=== PATIENT | female | born 1945 | race Caucasian/White ===

== ENCOUNTER 2016-07-25 12:55 | Emergency (ER) | payer OTHER, BC ==
[~2016-07-25] VITALS: Ht 165.1 cm; Wt 107.4 kg
[~2016-07-25 12:55] MED LIST: ASPIRIN325 MG PO; BENICAR HCT 201 EACH PO; BENICAR20 MG PO; BUDEPRION XL300 MG PO; Benicar PO; CRESTOR5 MG PO; ERGOCALCIF50000 UNIT PO; Ecotrin PO; GLUCOPHAGE500 MG PO; LO-DOSE ASPIRIN81 M1 PO; METFORMIN HCL750 MG PO; OMEPRAZOLE40 M1; OMEPRAZOLE40 M1 PO; Omeprazole PO; PRAVASTATIN SOD40 MG PO; SYNTHROID150 MCG PO; TYLENOL EXTRA500 MG PO; VITAMIN D250000 UNIT PO; WELLBUTRIN XL300 MG PO
[2016-07-25 14:24] LABS: HEMATOCRIT 39.3 % (36.0-46.0); MCH 28.3 PG (29.0-34.0); MCHC 32.1 G/DL (30.0-36.0); MCV 88.3 FL (83-99); MEAN PLAT.VOLUME 9.5 uM^3 (9.5-12.4); RBC DIS.WIDTH-CV 12.1 % (11.8-14.6); RBC DIS.WIDTH-SD 39.5 % (39-53); RED BLOOD COUNT 4.45 M/uL (3.80-5.20)
[2016-07-25 14:28] LABS: PLATELET COUNT 427 K/uL (156-360); WHITE BLOOD COUNT 8.1 K/uL (4.1-10.2)
[2016-07-25 14:36] LABS: CHLORIDE 102 mEq/L (99-109); POTASSIUM 3.6 mEq/L (3.7-5.4); SODIUM 136 mEq/L (136-147)
[2016-07-25 14:38] LABS: GLUCOSE 86 mg/dL (70-99)
[2016-07-25 14:39] LABS: ANION GAP 9 MEQ/L (2-14)
[2016-07-25 14:42] LABS: GFR ESTIMATE (CALCULATED) > 59 mL/min/; UREA NITROGEN (BUN) 9 mg/dL (9-23)
[2016-07-25 17:22] LABS: TROP-I INTERPRETATION NEGATIVE; TROPONIN-I < 0.01 ng/mL (0.0-0.30)
[2016-07-25] MEDS ORDERED: GABAPENTIN100 MG PO (17:43)
[2016-07-25] MEDS ORDERED: CELEXA10 MG PO (17:43)
[2016-07-25 18:22] LABS: ADD MIUA? YES; BILIRUBIN NEGATIVE; BLOOD NEGATIVE; COLOR AMBER ((YELLOW)); GLUCOSE (STRIP) NEGATIVE; KETONES NEGATIVE; LEUKOCYTES MODERATE; NITRITE NEGATIVE; PROTEIN (STRIP) 30; SPECIFIC GRAVITY 1.024 (1.000-1.030)
[2016-07-25 19:27] LABS: BACTERIA NONE SEEN /HPF; CALCIUM OXALATE CRYSTALS 4+ /HPF; EPITHELIAL CELLS 1+ /HPF; MUCUS 3+ /LPF
[2016-07-25] MEDS ORDERED: KEFLEX500 MG PO (19:28)
[2016-07-25] MEDS ORDERED: TESSALON PERLE100 MG PO (19:29)
[2016-07-25 19:57] VITALS: BP 136/86
== END 2016-07-25 19:59 | disposition home or self-care (01) ==
LOC: EME 12:55
PROVIDERS: Nurse Practitioner Family
DX: J40 Bronchitis, not specified as acute or chronic (principal); N39.0 Urinary tract infection, site not specified; I10 Essential (primary) hypertension; E78.5 Hyperlipidemia, unspecified; E03.9 Hypothyroidism, unspecified; Z79.82 Long term (current) use of aspirin
CPT/HCPCS: 71020; 80048; 81003; 83880; 84484; 85027; 87086; 93005; 94640; 99281; 99284

== ENCOUNTER 2017-03-19 15:28 | Emergency (ER) | payer OTHER, BC ==
[~2017-03-19] VITALS: Ht 165.1 cm; Wt 107.2 kg
[~2017-03-19 15:28] MED LIST changes: +CELEXA10 MG PO; +GABAPENTIN100 MG PO; +KEFLEX500 MG PO; +TESSALON PERLE100 MG PO
[2017-03-19 16:03] LABS: HEMATOCRIT 38.8 % (36.0-46.0); MCH 28.4 PG (29.0-34.0); MCHC 33.5 G/DL (30.0-36.0); MCV 84.7 FL (83-99); MEAN PLAT.VOLUME 9.4 uM^3 (9.5-12.4); PLATELET COUNT 251 K/uL (156-360); RBC DIS.WIDTH-SD 40.1 % (39-53); RED BLOOD COUNT 4.58 M/uL (3.80-5.20); WHITE BLOOD COUNT 5.9 K/uL (4.1-10.2)
[2017-03-19 16:13] LABS: CHLORIDE 98 mEq/L (99-109); POTASSIUM 3.9 mEq/L (3.7-5.4); SODIUM 131 mEq/L (136-147)
[2017-03-19 16:15] LABS: GLUCOSE 162 mg/dL (70-99)
[2017-03-19 16:16] LABS: ANION GAP 9 MEQ/L (2-14)
[2017-03-19 16:19] LABS: GFR ESTIMATE (CALCULATED) 47 mL/min/; UREA NITROGEN (BUN) 27 mg/dL (9-23)
[2017-03-19 16:25] LABS: TROP-I INTERPRETATION NEGATIVE; TROPONIN-I < 0.01 ng/mL (0.0-0.30)
[2017-03-19 18:07] VITALS: BP 118/92
== END 2017-03-19 18:12 | disposition home or self-care (01) ==
LOC: EME 15:28
DX: M54.2 Cervicalgia (principal); J84.9 Interstitial pulmonary disease, unspecified; E78.5 Hyperlipidemia, unspecified; I10 Essential (primary) hypertension; J44.9 Chronic obstructive pulmonary disease, unspecified; F32.9 Major depressive disorder, single episode, unspecified; K21.9 Gastro-esophageal reflux disease without esophagitis; F41.9 Anxiety disorder, unspecified; Z98.84 Bariatric surgery status; Z79.82 Long term (current) use of aspirin
CPT/HCPCS: 71020; 72050; 80048; 84484; 85027; 93005; 99281; 99284

== ENCOUNTER 2017-04-05 17:54 | Inpatient (IN) | payer OTHER, BC ==
[~2017-04-05] VITALS: Ht 165.1 cm; Wt 117.2 kg
[2017-04-05 18:38] LABS: EOSINOPHIL (%) 0.4 % (0-5); HEMATOCRIT 30.5 % (36.0-46.0); IMMATURE GRANULOCYTE (%) 0.3 % (0.0-0.7); LYMPHOCYTE COUNT 1.1 K/uL (1.0-2.8); MCHC 33.1 G/DL (30.0-36.0); MCV 84.5 FL (83-99); MEAN PLAT.VOLUME 8.7 uM^3 (9.5-12.4); MONOCYTE COUNT 0.6 K/uL (0-0.8); NEUTROPHIL (%) 82.2 % (45-76); PLATELET COUNT 231 K/uL (156-360); RBC DIS.WIDTH-CV 13.8 % (11.8-14.6); RBC DIS.WIDTH-SD 42.3 % (39-53); WHITE BLOOD COUNT 9.7 K/uL (4.1-10.2)
[2017-04-05 18:39] LABS: RED BLOOD COUNT 3.61 M/uL (3.80-5.20)
[2017-04-05 18:45] LABS: CHLORIDE 96 mEq/L (99-109); POTASSIUM 3.3 mEq/L (3.7-5.4); SODIUM 131 mEq/L (136-147)
[2017-04-05 18:46] LABS: GLUCOSE 111 mg/dL (70-99)
[2017-04-05 18:48] LABS: ANION GAP 10 MEQ/L (2-14)
[2017-04-05 18:50] LABS: GFR ESTIMATE (CALCULATED) > 59 mL/min/
[2017-04-05 18:51] LABS: UREA NITROGEN (BUN) 9 mg/dL (9-23)
[2017-04-05 18:58] LABS: TROP-I INTERPRETATION NEGATIVE; TROPONIN-I < 0.01 ng/mL (0.0-0.30)
[2017-04-05] MEDS ORDERED: GABAPENTIN100 MG PO (21:15)
[2017-04-05] MEDS ORDERED: METOPROLOL SUC100 MG PO (21:16)
[2017-04-05] MEDS ORDERED: AVAPRO150 MG PO (21:16)
[2017-04-05] MEDS ORDERED: STIOLTO RESPIMAT4 GM IH (21:16)
[2017-04-06 02:15] VITALS: BP 160/90; BP 181/79
[2017-04-06 06:14] LABS: EOSINOPHIL (%) 0 % (0-5); HEMATOCRIT 29.7 % (36.0-46.0); IMMATURE GRANULOCYTE (%) 0.6 % (0.0-0.7); INSTRUMENT ABS NEUTROPHIL CT 6.4 K/uL; LYMPHOCYTE COUNT 0.7 K/uL (1.0-2.8); MCH 27.6 PG (29.0-34.0); MCHC 32.3 G/DL (30.0-36.0); MCV 85.3 FL (83-99); MEAN PLAT.VOLUME 9.5 uM^3 (9.5-12.4); MONOCYTE (%) 1.4 % (3-12); MONOCYTE COUNT 0.1 K/uL (0-0.8); NEUTROPHIL (%) 88.9 % (45-76); NEUTROPHIL COUNT 6.4 K/uL (1.8-6.4); PLATELET COUNT 225 K/uL (156-360); RBC DIS.WIDTH-CV 13.9 % (11.8-14.6); RBC DIS.WIDTH-SD 43.1 % (39-53); RED BLOOD COUNT 3.48 M/uL (3.80-5.20); WHITE BLOOD COUNT 7.2 K/uL (4.1-10.2)
[2017-04-06 06:44] LABS: ANION GAP 11 MEQ/L (2-14); CHLORIDE 100 MEQ/L (99-109); GFR ESTIMATE (CALCULATED) > 59 mL/min/; POTASSIUM 3.9 MEQ/L (3.7-5.4); SAMPLE HEMOLYSIS CHECK 0; SAMPLE ICTERIC CHECK 0; SAMPLE LIPEMIA CHECK 0; SODIUM 135 MEQ/L (136-147); UREA NITROGEN (BUN) 9 mg/dL (9-23)
[2017-04-06 06:45] LABS: GLUCOSE 194 mg/dL (70-99)
[2017-04-06 07:15] VITALS: BP 133/62
[2017-04-06 17:06] VITALS: BP 175/77
[2017-04-06 23:59] VITALS: BP 140/64
[2017-04-07 08:05] LABS: INTERNAL CONTROL VALID? YES
[2017-04-07 08:08] VITALS: BP 160/70
[2017-04-07 16:04] VITALS: BP 140/90
[2017-04-08 00:05] VITALS: BP 152/78
[2017-04-08 00:07] VITALS: BP 152/78
[2017-04-08 08:04] VITALS: BP 194/90
[2017-04-08 08:52] LABS: INTERNAL CONTROL VALID? YES
[2017-04-08] MEDS ORDERED: PREDNISONE20 MG PO (13:31)
[2017-04-08] MEDS ORDERED: LEVAQUIN750 MG PO (13:32)
[2017-04-08] MEDS ORDERED: PROAIR RESPICL90 MCG IH (13:34)
[2017-04-08 16:36] VITALS: BP 198/88
[2017-04-09 07:09] LABS: ANION GAP 10 MEQ/L (2-14); CHLORIDE 100 MEQ/L (99-109); GFR ESTIMATE (CALCULATED) > 59 mL/min/; GLUCOSE 81 mg/dL (70-99); POTASSIUM 3.4 MEQ/L (3.7-5.4); SAMPLE HEMOLYSIS CHECK 0; SAMPLE ICTERIC CHECK 0; SAMPLE LIPEMIA CHECK 0; SODIUM 135 MEQ/L (136-147); UREA NITROGEN (BUN) 10 mg/dL (9-23)
[2017-04-09 08:04] VITALS: BP 184/84
[2017-04-09 11:54] VITALS: BP 160/90
[2017-04-09 13:07] LABS: JO-1 ANTIBODY 7 U/mL (0-99); SM (SMITH) ANTIBODY 8 U/mL (0-99); SS-A (SJOGREN'S) ANTIBODY 75 U/mL (0-99); SS-B (SJOGREN'S) ANTIBODY 9 U/mL (0-99)
[2017-04-09 14:13] LABS: EOSINOPHIL (%) 0.4 % (0-5); HEMATOCRIT 27.5 % (36.0-46.0); IMMATURE GRANULOCYTE (%) 0.8 % (0.0-0.7); IMMATURE GRANULOCYTE COUNT 0.1 K/uL; INSTRUMENT ABS NEUTROPHIL CT 4.8 K/uL; LYMPHOCYTE COUNT 2.5 K/uL (1.0-2.8); MCH 28.4 PG (29.0-34.0); MCHC 33.1 G/DL (30.0-36.0); MCV 85.9 FL (83-99); MEAN PLAT.VOLUME 9.5 uM^3 (9.5-12.4); MONOCYTE (%) 6.4 % (3-12); MONOCYTE COUNT 0.5 K/uL (0-0.8); NEUTROPHIL (%) 60.5 % (45-76); NEUTROPHIL COUNT 4.8 K/uL (1.8-6.4); RBC DIS.WIDTH-CV 13.8 % (11.8-14.6); RBC DIS.WIDTH-SD 43.7 % (39-53); WHITE BLOOD COUNT 7.9 K/uL (4.1-10.2)
[2017-04-09 14:19] LABS: PLATELET COUNT 295 K/uL (156-360)
[2017-04-09 16:41] VITALS: BP 154/90
== END 2017-04-09 21:20 | disposition home or self-care (01) | DRG 194 ==
LOC: EME → EDBD 17:54 → 5EAST 23:01 → EDOF 23:01 → ENRESERV 23:03 → CANRESERV 23:03 → ENRESERV 23:33 → 5EAST 04-06 01:14
PROVIDERS: Emergency Medicine; Family Medicine Sports Medicine; Internal Medicine Pulmonary Disease
DX: J18.9 Pneumonia, unspecified organism (principal); J84.10 Pulmonary fibrosis, unspecified; E87.1 Hypo-osmolality and hyponatremia; J20.9 Acute bronchitis, unspecified; E87.6 Hypokalemia; E11.42 Type 2 diabetes mellitus with diabetic polyneuropathy; E78.5 Hyperlipidemia, unspecified; I10 Essential (primary) hypertension; G47.33 Obstructive sleep apnea (adult) (pediatric); I25.10 Atherosclerotic heart disease of native coronary artery without angina pectoris; F03.90 Unspecified dementia, unspecified severity, without behavioral disturbance, psychotic disturbance, mood disturbance, and anxiety; E03.9 Hypothyroidism, unspecified; F32.9 Major depressive disorder, single episode, unspecified; F41.1 Generalized anxiety disorder; K21.9 Gastro-esophageal reflux disease without esophagitis; D64.9 Anemia, unspecified; E66.9 Obesity, unspecified; Z68.41 Body mass index [BMI] 40.0-44.9, adult; Z79.82 Long term (current) use of aspirin; Z79.84 Long term (current) use of oral hypoglycemic drugs; Z98.84 Bariatric surgery status
CPT/HCPCS: 36415; 71020; 80048; 80053; 82164 90; 82306 GA; 83605; 83880; 83970 GA; 84439; 84443; 84484; 85025; 86038; 86235; 86430; 87070; 87205; 87449; 87502; 93005; 94640; 94640 76; 99202; 99281; 99285; J0456; J0696; J1650; J2930; J7030; J7512